=== PATIENT | female | born 1970 | race Caucasian/White ===

== ENCOUNTER 2024-12-05 09:36 | Outpatient (AMB) | payer OTHER, SELFPAY ==
--- NOTE | 2024-12-05 09:41 | MHC.PC.OV ---
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 She saw me at [facility] primary care. She would like a physical today. Records transfer pending. She has a history of rosacea treated with Metrogel as needed. She goes to Dermatology once a year for annual skin exams. No history of skin cancer. Subclinical hypothyroidism, left thyroid nodule-patient denies symptoms. She has never required treatment with medication, but her TSH has been monitored. Due for follow up u/s for nodule. She denies symptoms of neck compression. She requests a referral to genetic counseling/testing because her sister was recently diagnosed with myotonic muscular dystrophy, and her sister's son also carries this diagnosis. Last mammogram: October 2023 and she had a follow up u/s April 2024 due to a ?fluid-filled sac? in the left breast. Patient was told the finding was benign in to have her mammogram repeated in October 2024. Order fax[facility]. Last colonoscopy: normal and repeat in 10 years recommended, done 1-2 years ago Last OBGYN visit: Dr. Benitez. Summer 2023. She goes to Dermatology annually for skin exams. Received influenza vaccine and covid vaccine in Fall. We discussed Shingrix and Prevnar-20. She declined pneumonia vaccine today, but she will think about this and get it at the pharmacy or call the office if she decides to proceed. ROS: Constitutional: No unexplained weight loss, fever, chills, fatigue or night sweats. Eyes: No vision changes, blurry vision, double vision, eye pain, eye redness, eye discharge. ENT: No hearing loss, sneezing, congestion, runny nose or sore throat. Respiratory: No shortness of breath, cough or sputum production. Cardiovascular: No chest pain, chest pressure or chest discomfort. No palpitations or pedal edema. Gastrointestinal: No anorexia, nausea, vomiting or diarrhea. No abdominal pain or blood in stool. Genitourinary: No dysuria, hematuria, urinary frequency. Neurologic: No headache, dizziness, syncope, unilateral weakness, ataxia, numbness or tingling in the extremities. Musculoskeletal: No muscle pain, back pain, joint pain or swelling. Hematologic/Lymphatics: No bleeding or bruising. No painful lymph nodes. Skin: No rash or itching. Endocrine: No cold or heat intolerance. No polyuria or polydipsia. No dysphagia. Psychiatric: No depression or anxiety. No SI/HI. Physical exam: Constitutional: Alert, in no distress. Head: Normocephalic. Eyes: Pupils are equal, round and reactive to light. Extraocular muscles intact. Ear, Nose and Throat: Canals clear. TMs normal. Normal nasal mucosa. No nasal discharge. No oral lesions. Neck: Supple, Full range of motion. No lymphadenopathy. Palpable approx 1 cm left thyroid mass, nontender. Respiratory: Clear to auscultation. Cardiovascular: S1 S2 regular. No murmurs. No carotid bruits. Gastrointestinal: Abdomen soft, non-tender, non-distended. Normal bowel sounds. No palpable masses. Neurologic: No focal neurological deficits. Symmetric patellar reflexes. Moves all extremities spontaneously. Sensation intact bilaterally. Skin: No rashes. Musculoskeletal: No gross deformities. Normal range of motion. Extremities: Warm and well perfused. No clubbing, cyanosis or edema. 3+ peripheral pulses bilaterally. Psychiatric: Normal mood and affect [facility] Medical History (Updated 12/05/24 @ 10:15 by SHAINA Abraham) Thyroid nodule Rosacea Family history of muscular dystrophy Subclinical hypothyroidism Routine physical examination Surgical History (Updated 12/05/24 @ 09:21 by Brandy Rodarte CMA) H/O section Family History (Updated 12/05/24 @ 09:46 by Brandy Rodarte CMA) Mother Renal cancer Father Cardiovascular disease Maternal Grandmother Diabetes mellitus Sister Muscular dystrophy Social History Housing: House Patient Tobacco Use Status: Never used Tobacco e-Cigarette/Vaping Use: Never Used Second Hand Smoke Exposure: No service: No Current occupational status: employed 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 1. Little interest or pleasure in doing things: not at all 2. Feeling down, depressed, or hopeless: not at all 3. Trouble falling or staying asleep, or sleeping too much: not at all 4. Feeling tired or having little energy: not at all 5. Poor appetite or overeating: not at all 6. Feeling bad about yourself - or that you are a failure or have let yourself or your family down: not at all 7. Trouble concentrating on things, such as reading the newspaper or watching television: not at all 8. Moving or speaking so slowly that other people could have noticed. Or the opposite - being so fidgety or restless that you have been moving around a lot more than usual: not at all 9. Thoughts that you would be better off or of hurting yourself in some way: not at all Total score: 0 Depression Screening Interpretation: Negative Depression Screening Done: Yes 04805 - PHQ-9 Billing: Yes Source: Developed by Drs. Manas Boogie, Carlyn Martinez, Bill Arevalo and colleagues, with an educational freedom from [employer]. Thrive Questionnaire Date Thrive assessed: 12/05/24 I am a: Patient What is your living situation today?: I have a steady place to live Within the past 12 months, did the food you bought not last and you didn't have the money to get more?: Never true Within the past 12 months, did you worry whether your food would run out before you got money to buy more?: Never true Do you have trouble paying for medicines?: No Do you have trouble getting transportation to medical appointments?: No Do you have trouble paying your heating and electricity bill?: No Do you have trouble taking care of your child, family member or friend?: No Do you have trouble with day-to-day activities such as bathing, preparing meals, shopping, managing finances, etc.?: No Are you currently unemployed and looking for a job?: No Are you interested in more education?: No Please select the resources that you would like help with: None Currently or been in a relationship where the following occur: No concerns reported THRIVE Score: 0 AUDIT C Alcohol Use Questionnaire (AUDIT-C) 1. How often do you have a drink containing alcohol?: Never Total Score: 0 LITTLE-7 AMB Questionnaire LITTLE-7 Date LITTLE - 7 assessed: 12/05/24 Feeling nervous, anxious, or on edge: 0 = Not at all Not being able to stop or control worryin = Not at all Worrying too much about different things: 0 = Not at all Trouble relaxin = Not at all Being so restless that it is hard to sit still: 0 = Not at all Becoming easily annoyed or irritable: 0 = Not at all Feeling afraid as if something awful might happen: 0 = Not at all Total LITTLE-7 score (0-4 normal; 5-9 mild; 10-14 moderate; 15-21 severe): 0 Source: Developed by Drs. Manas Boogie, Carlyn Martinez, Bill Arevalo and colleagues, with an educational freedom from [employer]. LITTLE-7 Assessment Billing LITTLE-7 Assessment Tool: LITTLE-7 Assessment 56431 Physical exam (Primary Care) Vital Signs: Last Vital Signs Pulse 85 12/05/24 09:43 Resp 12 12/05/24 09:43 BP 102/70 12/05/24 09:43 Pulse Ox 97 12/05/24 09:43 Oxygen Delivery Method Room Air 12/05/24 09:43 BMI result Body Mass Index 32.4 Tobacco/Smoking Status: Tobacco use Status Tobacco use date assessed 12/05/24 12/05/24 09:48 Patient Tobacco Use Status Never used Tobacco 12/05/24 09:48 e-Cigarette/Vaping Use Never Used 12/05/24 09:48 PHQ-9: PHQ-9 Score PHQ-9: Total score 0 12/05/24 09:48 Depression Screening Interpretation: Negative Thrive Assessment: Date of Thrive Assessment Date Thrive assessed 12/05/24 12/05/24 09:48 Currently or been in a relationship where the following occur: No concerns reported Coding Level of Care Code Est Pt Prev Care 40-64y(85631) Diagnoses Routine physical examination Z00.00 Thyroid nodule E04.1 Subclinical hypothyroidism E03.8 Family history of muscular dystrophy Z82.0 Additional Codes LITTLE-7 Assessment Billing - LITTLE-7 Assessment Tool: LITTLE-7 Assessment 73312 ([id number]) PHQ-9 - 09677 - PHQ-9 Billing: Yes ([id number]) Assessment & Plan Assessment & Plan (1) Routine physical examination: Code(s): Z00.00 - Encounter for general adult medical examination without abnormal findings Category: Medical Plan: Patient is seen today for a routine physical. 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 - Screening for colon cancer - Blood pressure screening - Cholesterol screening - Osteoporosis prevention including calcium/vitamin D intake, weight bearing exercise & smoking cessation - Nutritional and exercise counseling - Counseling of injury prevention including fire prevention, smoke alarms and seat belt usage - Screening for depression - Prevention of and/or testing for infectious diseases - Education about skin cancer - Recommendations about immunizations - Recommendation of an eye exam - Screening for substance abuse (2) Thyroid nodule: Code(s): E04.1 - Nontoxic single thyroid nodule Category: Medical Plan: Thyroid ultrasound ordered for surveillance. (3) Subclinical hypothyroidism: Code(s): E03.8 - Other specified hypothyroidism Category: Medical Plan: Check TSH. (4) Family history of muscular dystrophy: Code(s): Z82.0 - Family history of epilepsy and other diseases of the nervous system Category: Medical Plan: Referred to [facility] genetic counseling. Plan Follow up in 1 year for annual physical exam. Orders: Orders Lipid Panel Today E03.8 - Other specified hypothyroidism, E78.5 - Hyperlipidemia, unspecified, Z00.00 - Encounter for general adult medical examination without abnormal findings, Z13.6 - Encounter for screening for cardiovascular disorders Comprehensive Met. Panel Today E03.8 - Other specified hypothyroidism, Z00.00 - Encounter for general adult medical examination without abnormal findings, Z13.6 - Encounter for screening for cardiovascular disorders Complete Blood Count no Diff Today E03.8 - Other specified hypothyroidism, Z00.00 - Encounter for general adult medical examination without abnormal findings, Z13.6 - Encounter for screening for cardiovascular disorders TSH reflex Free T4 Today E03.8 - Other specified hypothyroidism, Z00.00 - Encounter for general adult medical examination without abnormal findings, Z13.6 - Encounter for screening for cardiovascular disorders US thyroid Today E03.8 - Other specified hypothyroidism, E04.1 - Nontoxic single thyroid nodule MM screening mammo BI Today Z12.31 - Encounter for screening mammogram for malignant neoplasm of breast Referrals Genetics Referral E03.8 - Other specified hypothyroidism, E04.1 - Nontoxic single thyroid nodule, L71.9 - Rosacea, unspecified, Z00.00 - Encounter for general adult medical examination without abnormal findings, Z82.0 - Family history of epilepsy and other diseases of the nervous system Patient Instructions: We discussed Shingrix and Prevnar-20.
[2024-12-05 09:43] VITALS: BP 102/70; PULSE 85; RESP 12; O2SAT 97; BMI 32.4
--- OUTSIDE RECORDS SUMMARY | 2024-12-05 10:07 | XMS_ITS | Data Portability ---
Author Organization [place] - [facility],, ILDA MORA MD Address [address] [address] Assessment No assessment recorded. Plan of Treatment Reminders Order Date Submit Date Provider Last Modified By Organization Details Last Modified Time Details Appointments None recorded. Lab cytology report, thin prep, smear or scraping, cervical or vaginal 2023 024 KELIN [facility], [address] [place], [address], 4 16:13:12 hemoglobi n, gastroint estinal, stool 2023 024 [email or web address] 1 In-Office Order, Internal Use Only DO Not Attach Compendium DO Not Attach Compendium, Do Not Delete/merge, [id number] 4 09:17:07 pap test, thinprep, cervical 2022 023 [email or web address] [facility], [address] [place], [address], 3 07:33:11 fecal occult blood, stool 2022 023 KELIN In-Office Order, Internal Use Only DO Not Attach Compendium DO Not Attach Compendium, Do Not Delete/merge, [id number] 3 08:50:21 pap test, thinprep, cervical 2021 022 [email or web address] [facility], Cytopathology Service, [address] [place], [address], 2 07:31:39 fecal occult blood, stool 2021 022 [email or web address] 1 In-Office Order, Internal Use Only DO Not Attach Compendium DO Not Attach Compendium, Do Not Delete/merge, [id number] 2 08:28:02 pap test, thinprep, cervical 2020 021 [email or web address] [facility] Cytopathology Service, [address] [place] [address], [address], 1 08:12:09 fecal occult blood, stool 2020 021 [email or web address] 1 In-Office Order, Internal Use Only DO Not Attach Compendium DO Not Attach Compendium, Do Not Delete/merge, [id number] 1 09:37:46 pap test, thinprep, cervical 2019 020 [email or web address] [facility], Cytopathology Service, [address] [place] [address], [address], 0 07:11:12 fecal occult blood, stool 2019 020 [email or web address] In-Office Order, Internal Use Only DO Not Attach Compendium DO Not Attach Compendium, Do Not Delete/merge, [id number] 0 07:10:28 Referral None recorded. Procedures None recorded. Surgeries None recorded. Imaging MAMMO, screening , digital, bilateral - Breast Aspiratio n and/or Biopsy if needed 2023 024 [email or web address] [facility], [address], [address], [place], [address], 4 11:50:49 MAMMO, screening , digital, bilateral - Breast Aspiratio n and/or Biopsy if needed 2022 023 KELIN [facility], [address], [address], [place], [address], 4 08:10:13 MAMMO, screening , digital, bilateral 2021 022 [email or web address] [facility], [address], [address], [place], [address], 4 07:48:44 MAMMO, screening , digital, bilateral 2020 021 [email or web address] [address], [place], [address], 2 08:25:35 MAMMO, screening , digital, bilateral 2019 020 KELIN [facility] Orders, [address], [address], [place], [address], 1 09:22:42 Medication Orders None recorded. Patient TargetsNo targets recorded. Patient Instructions Encounter Date Encounter Id Patient Instructions Last Modified By Organization Details Last Modified Time 03/18/2020 [id number] She is here for annual exam, mesnes still regular, no vasomotor symptoms, she did get The Change Before The Change and read it. s/p vasectomy. Note from 2019: She is here for annual exam. has a vasectomy, menses are regular every 29 days, 3 days of moderate flow. She is concerned because her D Dimer was elevated twice, upon testing last month, by the PA at her PCP office. She never saw the MD. She notes she had a severe pain in the back of her calf, they did a d dimer, it was elevated, no other blood testing was done, and they had her go immediately to the emergency department! The ultrasound of her leg ws negative, they had her go home and follow up in 2 weeks, the repeat d dimer was also elevated but less so, nothing else was done. she is worried something could be wrong. Also her TSH has been elevated in the 4 to 6 range, over the past 3 years, with multiple tests, she notes, but has never been bad enough to start medicine. Lab tests scanned to chart today. She is of Pashto origin, states she does not have thalassemia, no one in her family has a blood clotting disorder. The D Dimer is above reference range. This might just be normal for her, however she was symptomatic with calf pain and it has gone down since then, will check CBC, antithyroid peroxidase AB, fibrinogen, and FDP. She is also offered to not do these labs today but go to see her PCP, not the PA, but she states she has a difficult time getting in to see her PCP, I only see the PA for problems, so we will draw these here today. She is advised she could also see a automobile brakes bonder if she wishes. She appears to be doing well. She did see the specialist last year nad they ran blood tests but no etiology for chronically elevated D-dimer was found. She is advised to get 1500 mg of calcium daily into her diet and supplements combined. We discussed the benefits of adequate vitamin D supplementation to at least 400 units daily, daily aerobic exercise of 30 minutes, and stress reduction. Monthly self breast exam was taught, and stressed, and is advised to call if she discovers any new mass in the breast. Seat belt use for herself and passengers advised. The significant health benefits of becoming and remainig fit, with an optimal BMI, were also discussed. We discussed the potential reduction in chronic discomfort, the diminished risks of hypertension, diabetes, and heart disease with the proper weight management, and improved mobility as she ages. Strategies to reach and maintain her target weight wer discussed in detail, all questions answered. carol Not available 03/18/2020 08:29:53 04/28/2021 [id number] learning about healthy weight carol Not available 04/28/2021 09:37:46 She is here for annual exam, is doing well, having moderate hot flashes and night sweats on and off. Menses are every 1 to 2 months, irregular. No intermenstrual bleeding. She feels the vasomotor symptoms are tolerable for now. note from 2019: She is here for annual exam, mesnes still regular, no vasomotor symptoms, she did get The Change Before The Change and read it. s/p vasectomy. ___ She appears to be doing well. The issues of menopause were discussed at length. The diagnosis of menopause is the absense of menses for a calendar year. It is rarely possible to still have a menses after a year, but if she has any vaginal bleeding she should consider it abnormal, postmenopausal bleeding and contact us for evaluation. We discussed the possible symptoms of hot flashes, night sweats, insomnia, iritability, short term memory issues, and the possibility of developing anxiety or panic attacks. We reviewed why this occurs, on a physiologic basis, as her estrogen levels diminish. There are reasonable ways to diminish the symptoms, including avoidance of caffeine and alcohol, cooler temperature rooms, and wearing open and loose weave absorbant clothing, or nothing at all, at night. We touched on the social and life issues that can arise at this time due to the hormonal instability. There are ways to manage the symptoms with herbal therapy. The use of black cohash, specifically Remifemin, is discussed, and she is advised that she must take it twice a day for a month prior to trying to asses whether there is any benefit, as it takes a month to begin to notice improvement. We discussed the increased risks of osteoporosis after menopause, and the issues of vaginal dryness, dyspareunia, increased urinary incontinence, etc. Kegels were taught and stressed. We also discussed the possible addition of hormone replacement therapy, and it was offered to her that we can discuss this further if she would like to do so. She is advised to get 1500 mg of calcium daily into her diet and supplements combined. There is a health benefit with adequate vitamin D supplementation to at least 400 units daily, daily aerobic exercise of 30 minutes, and stress reduction. Monthly self breast exam was taught, and stressed, and is advised to call if she discovers any new mass in the breast. Not available 04/28/2021 09:38:27 05/03/2022 [id number] learning about healthy weight Not available 05/03/2022 08:28:02 She is here for annual, last menses was 11/13, menses every 4 to 6 months, partner vasectomy. Moderate vasomotor symptoms, tolerable Note from 2020: She is here for annual exam, is doing well, having moderate hot flashes and night sweats on and off. Menses are every 1 to 2 months, irregular. No intermenstrual bleeding. She feels the vasomotor symptoms are tolerable for now. The issues of perimenopause were discussed at length. She is aware that her menses will become erratic, and she may miss menses more frequently. We discussed the possible symptoms of hot flashes, night sweats, insomnia, iritability, short term memory issues, and the possibility of developing anxiety or panic attacks. We reviewed why this occurs, on a physiologic basis, as her estrogen levels diminish. We discussed ways to diminish the symptoms, including avoidance of caffeine and alcohol, cooler temperature rooms, and wearing open and loose weave absorbant clothing, or nothing at all, at night. We touched on the social and life issues that can arise at this time due to the hormonal instability. We discussed ways to manage the symptoms with herbal therapy. The use of black cohash, specifically Remifemin, is discussed, and she is advised that she must take it twice a day for a month prior to trying to asses whether there is any benefit, as it takes a month to begin to notice improvement. She is advised to read The Change Before The Change , by Dr. Hawkins. All questions answered. She appears to be doing well. She is advised to get 1500 mg of calcium daily into her diet and supplements combined. There is a health benefit with adequate vitamin D supplementation to at least 400 units daily, daily aerobic exercise of 30 minutes, and stress reduction. Monthly self breast exam was taught, and stressed, and is advised to call if she discovers any new mass in the breast. Not available 05/03/2022 08:28:42 05/03/2023 [id number] learning about healthy weight Not available 05/03/2023 08:50:07 She is here for annual, doing well, last menses 11/14. She notes occasional mild urinary stress incontinence only when her bladder is full. she does not do Kegels. PArtner vasectomy. Note from 2021: She is here for annual, last menses was 11/13, menses every 4 to 6 months, partner vasectomy. Moderate vasomotor symptoms, tolerable She appears to be doing well. She is advised ot do Kegels, this is taught. 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 Still having menses on and off, likely vaginal estradiol may not be very helpful at this time. Monthly self breast exam was taught, and stressed, and is advised to call if she discovers any new mass in the breast. Not available 05/03/2023 08:49:46 05/17/2024 [id number] learning about healthy weight Not available 05/17/2024 09:17:07 She is here for annual, no menses since 11/14, vasomotor symptoms are mild and improving over time. Note from 2022: She is here for annual, doing well, last menses 11/14. She notes occasional mild urinary stress incontinence only when her bladder is full. she does not do Kegels. PArtner vasectomy. She appears to be doing well. . Monthly self breast exam was taught, and stressed, and is advised to call if she discovers any new mass in the breast. Not available 05/17/2024 09:17:23 Reason for Referral None Reported. Results Created Date Observation Date Name Description Value Unit Range Abnormal Flag Note LastModifiedBy Organization Detail LastModifiedTime 04/28/20 21 04/28/2021 fecal occul t blood , stool Occult Blood negati ve Not Available In-Office Order Internal Use Only DO Not Attach Compendium DO Not Attach Compendium, Do Not Delete/merge, [id number] 04/28/2021 08:07:11 03/18/20 20 03/18/2020 fecal occul t blood , stool Occult Blood negati ve Not Available In-Office Order Internal Use Only DO Not Attach Compendium DO Not Attach Compendium, Do Not Delete/merge, [id number] 03/18/2020 08:02:26 03/18/20 20 03/18/2020 pap test, thinp rep, cervi wei [id number] ThinP rep Pap, Image d: NEGAT PATRICIA FOR SQUAM OUS INTRA EPITH ELIAL LESIO N AND MALIG AAKASH . React patricia cellu lar cedeño es. Emani Crain , CT( CP) (Case Scree dar 03 23 2020) Zahraa Hopper M.D. , Patho logis t (Case elect lebron nunez harriet d 03 24 2020) ADEQU ACY: Satis facto ry Endoc ervic al/tr ansfo rmati on zone compo nent absen t. SOURC E: ThinP rep Pap HPV IF ASCUS , Cervi wei, Image d CLINI WEI INFOR MATIO N: HPV If Diagn osis of ASCUS . LPS , Z12.4 , Z01.4 19 Not Available [facility], Cytopathology Service [address] [place], [address], 03/25/2020 14:33:14 04/28/20 21 04/28/2021 PAP1C ASE [email or web address] ThinP rep Pap, Image d: NEGAT PATRICIA FOR SQUAM OUS INTRA EPITH ELIAL LESIO N AND MALHOLLY FINN . Ladan ambrocio , CT( CP) (Case elect lebron nunez harriet d 04 30 2021) ADEQU ACY: Satis facto ry Endoc ervic al/tr ansfo rmati on zone compo nent absen t. SOURC E: ThinP rep Pap HPV IF ASCUS , Cervi wei, Image d CLINI WEI INFOR MATIO N: HPV If Diagn osis of ASCUS . LPS NEG [Z12. 4, Z01.4 19] Not Available [facility], Cytopathology Service [address] [place], [address], 04/30/2021 11:55:56 05/03/20 22 05/03/2022 PAP1C ASE [id number] ThinP rep Pap, Image d: NEGAT PATRICIA FOR SQUAM OUS INTRA EPITH ELIAL LESIO N AND OLAF FINN . Bri Cedeño il , CT( CP) (Case elect lebron nunez harriet d 05 07 2022) ADEQU ACY: Satis facto ry Endoc ervic al/tr ansfo rmati on zone compo nent absen t. SOURC E: ThinP rep Pap HPV IF Ascus : Refle x 16 and 18, Cervi wei, Image d CLINI WEI INFOR MATIO N: HPV If Diagn osis of ASCUS . LPS 1 neg, [Z01. 419] Not Available [facility], Cytopathology Service [address] [place], [address], 05/09/2022 12:42:03 05/03/20 22 05/03/2022 fecal occul t blood , stool Occult Blood negati ve Not Available In-Office Order Internal Use Only DO Not Attach Compendium DO Not Attach Compendium, Do Not Delete/merge, [id number] 05/03/2022 08:27:54 05/03/20 23 05/03/2023 [facility] [place] CYTOL OGY results Raquel nathan Name: IRAJ CHEW ESRODRIGO nt : 1969 (Age: 53) Lab Acces jackeline #: [id number] Colle ction Date: 2022 Acces jackeline Date: 2022 Sign Out Date: 2022 Tissu e Sourc e: 1: THINP REP 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 Satis facto ry for evalu ation . Endoc ervic al/tr ansfo rmati on zone ABSEN T. Clini wei Histo ry: Date of Last Menst rual Perio d: not avail able Menst rual Histo ry: not avail able Contr acept patricia Histo ry: not avail able Ancil callum Testi ng: HPV (ASCU S) Case image d by the ThinP rep Imagi ng Systadamaris m with marcus navarror amelia arechiga or fazal gale Perfo rmed at [facility] ate Refer ence [facility] Cytol ogy, [address] [place] Clini wei Histo ry (othe r): Z01.4 19 LPS 05-03 NEGAT PATRICIA ROUTI NE ANISHE N Phone #: [phone], On-Ca ll Patho logis t: [id number] Not Available [facility] [address], [place], [place], [address], 05/05/2023 12:34:33 05/03/20 23 05/03/2023 fecal occul t blood , stool Occult Blood negati ve Not Available In-Office Order Internal Use Only DO Not Attach Compendium DO Not Attach Compendium, Do Not Delete/merge, [id number] 05/03/2023 08:19:02 05/17/20 24 05/21/2024 IGP, RFX APTIM A HPV ASCU diagnosis: Jerome mcneill NEGAT PATRICIA FOR INTRA EPITH ELIAL LESCORINNE N OR OLAF FINN . Not Available [facility] ([facility]) [address] [facility], [place], [address], 05/21/2024 16:13:12 05/17/20 24 05/21/2024 IGP, RFX APTIM A HPV ASCU specimen adequacy: Jerome mcneill Satis facto wilian for evalu ation . No endoc ervic al compo nent is ident ified . Not Available [facility] ([facility]) [address] [facility], [place], [address], 05/21/2024 16:13:12 05/17/20 24 05/21/2024 IGP, RFX APTIM A HPV ASCU clinician provided ICD10: Jerome mcneill Z01.4 19 Not Available [facility] ([facility]) [address] [facility], [place], [address], 05/21/2024 16:13:12 05/17/20 24 05/21/2024 IGP, RFX APTIM A HPV ASCU performed by: Sandra Nguyen (ASCP ) Not Available [facility] ([facility]) [address] [facility], [place], [address], 05/21/2024 16:13:12 05/17/20 24 05/21/2024 IGP, RFX APTIM A HPV ASCU . . Not Available [facility] ([facility]) [address] [facility], [place], [address], 05/21/2024 16:13:12 05/17/20 24 05/21/2024 IGP, RFX APTIM A HPV ASCU note: Commen t The Pap smear is a scree alba test desig dar to aid in the detec tion of hoda ligna nt and malig nant condi tions of the uteri ne cervi x. It is not a diagn ostic proce dure and shoul d not be used as the sole means of detec ting cervi wei cance r. Both false -posi tive and false -nega tive repor ts do occur . Not Available [facility] ([facility]) [address] [facility], [place], [address], 05/21/2024 16:13:12 05/17/20 24 05/21/2024 IGP, RFX APTIM A HPV ASCU test methodology: Commen t This liqui d based ThinP rep(R ) pap test was scree dar with the use of an image guide trevor systadamaris m. Not Available [facility] ([facility]) [address] [facility], [place], [address], 05/21/2024 16:13:12 05/17/20 24 05/21/2024 IGP, RFX APTIM A HPV ASCU . Commen t The HPV DNA refle x crite [place]akot[place] were not met with this speci men resul t there fore, no HPV testi ng was perfo rmed. Not Available [facility] ([facility]) [address] [facility], [place], [address], 05/21/2024 16:13:12 05/17/20 24 05/17/2024 hemog lobin , gastr ointe yanni l, stool Occult Blood negati ve Not Available In-Office Order Internal Use Only DO Not Attach Compendium DO Not Attach Compendium, Do Not Delete/merge, [id number] 05/17/2024 08:08:23 12/26/19 21 12/24/2020 MAMMO , scree alba, digit al, bilat eral No observ ation record ed. [facility] [address], [place], [address], 12/25/2020 09:27:05 10/25/19 24 10/25/2023 MAMMO , scree alba, digit al, bilat eral No observ ation record ed. [email or web address] [facility] [address], [place], [address], 10/30/2023 09:00:35 11/02/19 24 11/02/2023 ramya LANGSTON No observ ation record ed. [facility] [address] [place], [address], 11/02/2023 16:42:42 05/02/20 24 05/02/2024 ramya LANGSTON No observ ation record ed. [facility] [address] [place], [address], 05/02/2024 08:58:23 Result Notes None recorded. 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, 4 11:01:07 [facility] 47496040 Active 2017 Ilda Mora MD [address] [facility],[address], [place], [address], [place] [facility], 8 13:38:47 Menorrhagia 166032964 Active 2017 Ilda Mora MD [address], [place], [address], [place] - [facility], 8 13:46:41 Adela 009061342 Active 2018 [place] S[place] in [facility], 9 14:06:15 Blood in urine 46369533 Active Ilda Mora MD [address], [place], [address], [place] [facility], 4 15:23:58 Problem Notes None recorded. Procedures Surgical History Date Name Laterality Status Provider Name and Address Organization Details Recorded Time 4 Most Recent Mammogram completed Marietta Liu in [facility], 05/09/2024 11:14:22 8 Caesarean Section completed Corrine Liu in [facility], 01/01/2013 14:52:52 8 Caesarean Section completed Corrine Liu in [facility], 01/01/2013 14:52:52 Imaging Results Imaging Date Name Status [facility] Details LastModified Time 12/24/2020 MAMMO, screening, digital, bilateral completed [facility] [address], [place], [address], 12/25/2020 09:27:05 10/25/2023 MAMMO, screening, digital, bilateral completed [email or web address] [facility] [address], [place], [address], 10/30/2023 09:00:35 11/02/2023 US, breast completed [facility] [address] [place], [address], 11/02/2023 16:42:42 05/02/2024 US, breast completed [facility] [address], [place], [address], 05/02/2024 08:58:23 Procedure Notes None recorded. Medical Equipment None Reported. Allergies No known drug allergies Medications Name Sig Start Date Stop Date Status Note LastModified by Organization Details LastModified Time cyclobenzap rine 10 mg tablet active Not Available Not Available Not Available amoxicillin 500 mg capsule TAKE 1 CAPSULE BY MOUTH TWICE A DAY FOR 10 DAYS 05/03 completed Not Available Not Available Not Available ibuprofen 800 mg tablet active Not Available Not Available Not Available meloxicam 15 mg tablet TAKE 1 TABLET BY MOUTH EVERY DAY NEEDED 05/03 completed Not Available Not Available Not Available prednisone 20 mg tablet active Not Available Not Available Not Available sulfamethox azole 800 mg-trimetho prim 160 mg tablet active Not Available Not Available Not Available cephalexin 500 mg capsule active Not Available Not Available Not Available erythromyci n 5 mg/gram (0.5 %) eye ointment LOCATION: BOTH EYES. APPLY 1/4 INCH TO AFFECTED EYE EACH NIGHT. 90 DAYS SUPPLY 05/03 completed Not Available Not Available Not Available metronidazo le 0.75 % topical cream 05/03 completed Not Available Not Available Not Available azelaic acid 15 % topical gel 04/28 completed Not Available Not Available Not Available GaviLyte-G 236 gram-22.74 gram-6.74 gram-5.86 gram oral solution TAKE DIRECTED BY DR. MEADE 05/03 completed Not Available Not Available Not Available Vitals Date Recorded Body height Body mass index (BMI) Body weight Heart rate Systolic blood pressure Diastolic blood pressure Provider Name and Address Organization Details Last Updated DateTime 0 160.02 cm 32 kg/m2 20976.0 6 g 83 /min 119 mm[Hg] 65 mm[Hg] Marietta Theodore [place] [facility], 0 07:57:28 Date Recorded Body weight Body mass index (BMI) Body height Heart rate Systolic blood pressure Diastolic blood pressure Provider Name and Address Organization Details Last Updated DateTime 1 12637.6 1 g 30.5 kg/m2 160.02 cm 75 /min 107 mm[Hg] 60 mm[Hg] Marietta Liu in [facility], 1 08:15:00 Date Recorded Body height Body mass index (BMI) Body weight Body temperature Heart rate Systolic blood pressure Diastolic blood pressure Provider Name and Address Organization Details Last Updated DateTime 2 160.02 cm 31.9 kg/m2 17433.6 3 g 97.3 [degF] 77 /min 111 mm[Hg] 54 mm[Hg] Marietta Liu in [facility], 2 08:12:21 Date Recorded Body height Body mass index (BMI) Body weight Heart rate Systolic blood pressure Diastolic blood pressure Provider Name and Address Organization Details Last Updated DateTime 3 160.02 cm 31.9 kg/m2 77872.6 3 g 83 /min 105 mm[Hg] 57 mm[Hg] Rachael Liu in [facility], 3 08:22:01 Date Recorded Body temperature Heart rate Body weight Body mass index (BMI) Body height Systolic blood pressure Diastolic blood pressure Provider Name and Address Organization Details Last Updated DateTime 4 98.1 [degF] 72 /min 02890.3 1 g 32.8 kg/m2 160.02 cm 123 mm[Hg] 49 mm[Hg] Marietta Liu in [facility], 4 08:08:28 Social History Question Answer Notes LastModified by Organization Details LastModified Time Tobacco Smoking Status Never Smoker Not Available [facility] 08/25/2020 03:19:39 What Is Your Level Of Alcohol Consumption? None [id number] Information not available 08/25/2020 What Is Your Level Of Caffeine Consumption? None [id number] Information not available 08/25/2020 In The 14 Days Before Symptom Onset, Have You Had Close Contact With A Laboratory-confi rmed COVID-19 While That Case Was Ill? No Information not available 05/03/2022 In The 14 Days Before Symptom Onset, Have You Had Close Contact With A Person Who Is Under Investigation For COVID-19 While That Person Was Ill? No Information not available 05/03/2022 Have You Been To An Area Known To Be High Risk For COVID-19? No Information not available 05/03/2022 Are You Currently Employed? Yes Information not available 05/03/2023 What Type Of Diet Are You Following? REGULAR [id number] Information not available 08/25/2020 Which Illicit Or Recreational Drugs Have You Used? None [id number] Information not available 08/25/2020 Do You Reside In Or Have You Traveled To An Area Where Ebola Virus Transmission Is Active? No [id number] Information not available 08/25/2020 Do You Or Have You Ever Used E-cigarettes Or Vape? Never Used Electronic Cigarettes [id number] Information not available 08/25/2020 Education Post Graduate [email or web address] Information not available 01/01/2013 What Is The Highest Grade Or Level Of School You Have Completed Or The Highest Degree You Have Received? 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 0 Information not available 08/01/2016 Are There Any Guns Present In Your Home? No Information not available 05/03/2022 High Number Of Sexual Partners No Information not available 08/01/2016 To Which Gender Do You Self-identify? Female Information not available 08/01/2016 Marital Status [email or web address] Informatio n not available 01/01/2013 What Was The Date Of Your Most Recent Tobacco Screening? 05/03/2023 Information not available 05/03/2023 What Is Your Relationship Status? Information not available 05/03/2022 Are You Sexually Active? Yes [id number] Information not available 08/25/2020 Do You Or Have You Ever Used Smokeless Tobacco? Never Used Smokeless Tobacco [id number] Information not available 08/25/2020 How Much Tobacco Do You Smoke? No [id number] Information not available 08/25/2020 General Stress Level Low Information not available 04/28/2021 Do You Feel Stressed (tense, Restless, Nervous, Or Anxious, Or Unable To Sleep At Night)? [id number] Information not available 05/03/2022 Do You Use Any Illicit Or Recreational Drugs? No Information not available 05/03/2022 How Many Years Have You Smoked Tobacco? 0 [id number] Information not available 08/25/2020 Have You Recently (within The Last 12 Weeks, Or During A Current ) Traveled To Or Lived In A Zika-affected Area? No Information not available 08/01/2016 Do You Or Have You Ever Used Any Other Forms Of Tobacco Or Nicotine? No Information not available 05/03/2022 Sex: Female Functional Status Question Answer Note LastModified by Organization D etails LastModified Time What is your exercise level? Moderate Information not available 04/28/2021 Mental Status None recorded. Family History Relationship Description Onset Age of this Age Resolved Age Notes LastModified by Organization Details LastModified Time Mother Kidney disease 63 Renal cell Not available 04/30/2015 15:11:13 Maternal Grandmother Endometrial carcinoma previo usly record ed as Endome trial Cancer Not available 04/30/2015 15:11:13 Father Heart disease CABG x 3 (previ ously record ed as Heart Proble m) Not available 04/30/2015 15:11:13 Father Problem brain bleed. 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 Medical History Condition Response Anesthesia complications N High Blood Pressure N Candidate for MyRisk panel N Autoimmune Condition N Lung Disease N Depression N Defects or Inherited Disease N History of Ovarian Cancer N BRCA testing in past N Anxiety Disorder N Arthritis N Infertility N History of Cancer N Endometriosis N Thyroid Problems Y Kidney or Bladder Problems Y GI Problems N Anemia N History of Breast Cancer N JOHN exposure N Osteopenia N Psychiatric Illness N Diabetes N Headaches or Migraines N Asthma N Hepatitis N Heart Disease N Hypertension N Osteoporosis N Gynecological History Statement/Question Response Dysmenorrhea N Flow Heavy Frequency of Cycle (Q days) 28 Date of LMP 11/01/2022 N Menses Monthly Y Duration of Flow (days) 5 Most Recent Mammogram 10/25/2023 Current Control Method Partner Vas ectomy Age at Menarche 11 Age at First Child 28 Hormone Replacement Therapy N Obstetrics History GPAL:G 3 P 3 0 0 3 Type Value Full Term 3 Living 3 Total 3 Immunizations Vaccine Type Date Status Note Provider Nam e and Address Organization Details Recorded Time Influenza, split virus, trivalent, preservative 2 completed Ilda Mora MD [address] [facility],[address], [place], [address], [facility], 01/01/2013 15:05:14 Influenza, split virus, trivalent, preservative 3 completed [facility], 11/21/2013 13:59:55 Influenza, split virus, quadrivalent, preservative 7 completed Marietta Meczywor adithya [place] [facility], 11/20/2017 08:09:22 Influenza, split virus, quadrivalent, preservative 8 completed Marietta Meczywor null [place] [facility], 01/09/2019 08:07:58 Influenza, split virus, quadrivalent, preservative 9 completed Marietta Meczywor adithya [place] [facility], 03/18/2020 07:59:07 Influenza, split virus, quadrivalent, preservative 0 completed Marietta Meczywor null [place] [facility], 04/28/2021 08:16:52 COVID-19, mRNA, LNP-S, PF, 100 mcg/0.5mL dose or 50 mcg/0.25mL dose 1 completed Marietta Meczywor adithya [place] [facility], 04/28/2021 08:17:16 Influenza, split virus, quadrivalent, preservative 1 completed RIKKI Sibley in [facility], 05/03/2022 08:11:23 influenza, unspecified formulation 3 completed RIKKI Sibley in [facility], 05/17/2024 08:10:13 Past Encounters Encounter ID Performer Location Encounter Start Date Encounter Closed Date Diagnosis/Indication Diagnosis SNOMED-CT Code Diagnosis ICD10 Code Diagnosis Note [id number] MD ILDA Burks MD [address] [place] [address], [address] [address] 01/01/2013 14:34:51 01/02/2013 09:40:45 [id number] Corrine Glasgow ILDA MORA MD [address] [place] [address],[address] [address] 11/21/2013 13:44:44 11/21/2013 16:15:06 Blood in urine [id number] ILDA MORA MD [address] [place] [address],[address] [address] 04/07/2014 09:32:03 04/07/2014 11:23:39 Specialized medical examination [id number] Screening for malignant neoplasm of rectum 467927737 Screening mammography 27526156 Goiter [id number] ILDA MORA MD [address] [place] [address],[address] [address] 04/30/2015 14:44:48 04/30/2015 16:09:21 Specialized medical examination 21153546 Screening for malignant neoplasm of rectum 731846238 Screening mammography [id number] MD ILDA Burks MD [address] [place] [address],[facility] [address] [place] [address] 08/01/2016 13:13:38 08/01/2016 15:14:55 Specialized medical examination 60440197 Z01.419 Screening for malignant neoplasm of rectum 812917976 Z12.12 Screening mammography 24 718611 Z12.31 Cyst of ovary 79123233 N 83.29 [id number] MD ILDA Burks MD [address] [place] [address],[address] [address] 10/21/2016 08:58:56 10/21/2016 15:32:02 Cyst of ovary 98566417 N83.02 [id number] MD LIDA uBrks MD [address] [place] [address],[facility] [place] [address] 11/20/2017 07:59:38 11/20/2017 12:29:03 Specialized medical examination 36858988 Z01.419 Screening for malignant neoplasm of rectum 410389070 Z12.12 Screening mammography 24 237007 Z12.31 Menorrhagia 384266095 N9 2.0 Goiter 5026648 E04.9 [id number] MD ILDA Burks MD [address] [place] [address],[facility] [place] [address] 12/12/2017 13:19:58 12/12/2017 14:45:21 Hypothyroidism 99345779 E03.9 Goiter 8198232 E04.9 Menorrhagia 205081258 N9 2.0 [id number] MD ILDA Burks MD [address] [place] [address],[facility] [place] [address] 02/12/2018 09:07:50 02/12/2018 12:08:36 Breast lump [id number] N63.0 [id number] MD ILDA Burks MD [address] [place] [address] [place] [address] 01/09/2019 08:02:57 01/09/2019 10:25:11 Specialized medical examination 59590642 Z01.419 Screening for malignant neoplasm of rectum 555175968 Z12.12 Screening mammography 24 489365 Z12.31 D-dimer ab ove reference range 465408307 R79.1 [id number] MD ILDA Burks MD [address] [place] [address],[facility] [place] [address] 07/25/2019 13:45:09 07/25/2019 15:26:24 Irregular periods 32404690 N92.4 [id number] MD ILDA Burks MD [address] [place] [address] [place] [address] 03/18/2020 07:53:56 03/18/2020 09:47:44 Specialized medical examination 31897655 Z01.419 Screening for malignant neoplasm of rectum 943954806 Z12.12 Screening mammography 24 084569 Z12.31 [id number] MD ILDA Burks MD [address] [place] [address], [address] [facility] [place] [address] 04/28/2021 08:04:35 04/28/2021 10:37:11 Specialized medical examination 06264142 Z01.419 Screening for malignant neoplasm of rectum 525797559 Z12.12 Screening mammography 24 653481 Z12.31 [id number] MD ILDA Burks MD [address] [place] [address], [address] [facility] [place] [address] 05/03/2022 08:04:52 05/03/2022 10:32:14 Specialized medical examination 09484400 Z01.419 Screening for malignant neoplasm of rectum 374740651 Z12.12 Screening mammography 24 515120 Z12.31 [id number] MD ILDA Burks MD [address] [place] [address], [address] [place] [address] 05/03/2023 08:17:40 05/03/2023 11:39:17 Specialized medical examination 76624366 Z01.419 Screening for malignant neoplasm of rectum 903755113 Z12.12 Screening mammography 24 221490 Z12.31 [id number] MD ILDA Burks MD [address] [place] [address], [place] [place] [address] 05/17/2024 08:06:15 05/17/2024 11:50:49 Specialized medical examination 68964928 Z01.419 Screening for malignant neoplasm of rectum 912839437 Z12.12 Screening mammography 24 238527 Z12.31 Health Concerns Section Related Observation LastModified by Organization Detai ls LastModified Time None Recorded Concern Status LastModified by Organization Details LastModified Time None Recorded Advance Directives Directive None Recorded Payers Encounter Date Sequence Insurance Name Policy Number Policy Da Silva Covered Member ID Da Silva Member ID Guarantor Name 03/18/2020 1 [place] [id number] Gary Chase [id number] Rodrigo Chase 04/28/2021 1 [place] [id number] Gary Chase [id number] Rodrigo Chase 05/03/2022 1 [employer] - OPEN ACCESS PLUS [id number] Gary Chase [id number] Rodrigo Chase 05/03/2023 1 [employer] - OPEN ACCESS PLUS [id number] Gary Chase [id number] Rodrigo Chase 05/17/2024 1 [employer] - OPEN ACCESS PLUS [id number] Gary Chase [id number] Rodrigo Chase Notes Date Note Type Note Provider Name and Address Organization Details Recorded Time 03/18/2020 text/html She is here for annual exam, mesnes still regular, no vasomotor symptoms, she did get [employer] and read it. s/p vasectomy. Note from 2019: She is here for annual exam. has a vasectomy, menses are regular every 29 days, 3 days of moderate flow. She is concerned because her D Dimer was elevated twice, upon testing last month, by the PA at her PCP office. She never saw the MD. She notes she had a severe pain in the back of her calf, they did a d dimer, it was elevated, no other blood testing was done, and they had her go immediately to the emergency department! The ultrasound of her leg ws negative, they had her go home and follow up in 2 weeks, the repeat d dimer was also elevated but less so, nothing else was done. she is worried something could be wrong. Also her TSH has been elevated in the 4 to 6 range, over the past 3 years, with multiple tests, she notes, but has never been bad enough to start medicine. Lab tests scanned to chart today. She is of Pashto origin, states she does not have thalassemia, no one in her family has a blood clotting disorder. The D Dimer is above reference range. This might just be normal for her, however she was symptomatic with calf pain and it has gone down since then, will check CBC, antithyroid peroxidase AB, fibrinogen, and FDP. She is also offered to not do these labs today but go to see her PCP, not the PA, but she states she has a difficult time getting in to see her PCP, I only see the PA for problems, so we will draw these here today. She is advised she could also see a automobile brakes bonder if she wishes. Ilda Mora MD [address] [facility],[address], [place], [address], [employer] [facility], 03/18/2020 08:30:29 04/28/2021 text/html She is here for annual exam, is doing well, having moderate hot flashes and night sweats on and off. Menses are every 1 to 2 months, irregular. No intermenstrual bleeding. She feels the vasomotor symptoms are tolerable for now. note from 2019: She is here for annual exam, mesnes still regular, no vasomotor symptoms, she did get The [employer] Before The Change and read it. s/p vasectomy. Ilda Mora MD [address] [facility],[address], [place], [address], [employer] [facility], 04/28/2021 09:38:48 05/03/2022 text/html She is here for annual, last menses was 11/13, menses every 4 to 6 months, partner vasectomy. Moderate vasomotor symptoms, tolerable _ Note from 2020: She is here for annual exam, is doing well, having moderate hot flashes and night sweats on and off. Menses are every 1 to 2 months, irregular. No intermenstrual bleeding. She feels the vasomotor symptoms are tolerable for now. Ilda Mora MD [address], [place], [address], [employer] [facility], 05/03/2022 08:29:03 05/03/2023 text/html She is here for annual, doing well, last menses 11/14. She notes occasional mild urinary stress incontinence only when her bladder is full. she does not do Kegels. PArtner vasectomy. Note from 2022: She is here for annual, last menses was 11/13, menses every 4 to 6 months, partner vasectomy. Moderate vasomotor symptoms, tolerable Ilda Mora MD [address], [place], [address], [place] [facility], 05/03/2023 08:50:12 05/17/2024 text/html She is here for annual, no menses since 11/14, vasomotor symptoms are mild and improving over time. _ Note from 2022: She is here for annual, doing well, last menses 11/14. She notes occasional mild urinary stress incontinence only when her bladder is full. she does not do Kegels.PArtner vasectomy. Ilda Mora MD [address], [place], [address], [place] [facility], 05/17/2024 09:17:44 OBGyn Episode No OBEpisode recorded.
== END 2024-12-05 10:12 | disposition home or self-care (01) ==
PROVIDERS: PCP Physician Assistant Medical; Visit Provider Physician Assistant Medical
DX: Z00.00 Encounter for general adult medical examination without abnormal findings (principal); E04.1 Nontoxic single thyroid nodule; E03.8 Other specified hypothyroidism; Z82.0 Family history of epilepsy and other diseases of the nervous system

== ENCOUNTER → 2024-12-05 09:36 | Outpatient (BNVA) | payer OTHER, SELFPAY | PROVIDERS: PCP Physician Assistant Medical; Visit Provider Physician Assistant Medical | DX: Z00.00 Encounter for general adult medical examination without abnormal findings (principal); E04.1 Nontoxic single thyroid nodule; E03.8 Other specified hypothyroidism; L71.9 Rosacea, unspecified; Z82.0 Family history of epilepsy and other diseases of the nervous system | CPT/HCPCS: 96127 ==

== ENCOUNTER 2024-12-10 09:05 | Outpatient (REF) | payer OTHER, SELFPAY ==
--- OUTSIDE RECORDS SUMMARY | 2024-12-10 09:41 | XMS_ITS | Data Portability ---
Author Organization [place] - [facility],, ILDA MORA MD Address [address] [address] Assessment No assessment recorded. Plan of Treatment Reminders Order Date Submit Date Provider Last Modified By Organization Details Last Modified Time Details Appointments None recorded. Lab cytology report, thin prep, smear or scraping, cervical or vaginal 2023 024 KELIN [facility], [address] [place], [address], 4 16:13:12 hemoglobi n, gastroint estinal, stool 2023 024 [email or web address] 1 In-Office Order, Internal Use Only DO Not Attach Compendium DO Not Attach Compendium, Do Not Delete/merge, [id number] 09:17:07 pap test, thinprep, cervical 2022 023 [email or web address] [facility], [address] [place], [address], 3 07:33:11 fecal occult blood, stool 2022 023 KELIN In-Office Order, Internal Use Only DO Not Attach Compendium DO Not Attach Compendium, Do Not Delete/merge, [id number] 3 08:50:21 pap test, thinprep, cervical 2021 022 [email or web address] [facility], Cytopathology Service, [address] [place], [address], 2 07:31:39 fecal occult blood, stool 2021 022 [email or web address] 1 In-Office Order, Internal Use Only DO Not Attach Compendium DO Not Attach Compendium, Do Not Delete/merge, [id number] 2 08:28:02 pap test, thinprep, cervical 2020 021 [email or web address] [facility] Cyt[facility], [address] [place] [address], [address], 1 08:12:09 fecal occult blood, stool 2020 021 [email or web address] 1 In-Office Order, Internal Use Only DO Not Attach Compendium DO Not Attach Compendium, Do Not Delete/merge, [id number] 1 09:37:46 pap test, thinprep, cervical 2019 020 [email or web address] [facility] Cyt[facility], [address] [place] [address], [address], 0 07:11:12 fecal occult blood, stool 2019 020 [email or web address] In-Office Order, Internal Use Only DO Not Attach Compendium DO Not Attach Compendium, Do Not Delete/merge, [id number] 0 07:10:28 Referral None recorded. Procedures None recorded. Surgeries None recorded. Imaging MAMMO, screening , digital, bilateral - Breast Aspiratio n and/or Biopsy if needed 2023 024 [email or web address] [facility], [address], [address], [place], [address], 4 11:50:49 MAMMO, screening , digital, bilateral - Breast Aspiratio n and/or Biopsy if needed 2022 023 KELIN [facility], [address], [address], [place], [address], 4 08:10:13 MAMMO, screening , digital, bilateral 2021 022 [email or web address] [facility], [address], [address], [place], [address], 4 07:48:44 MAMMO, screening , digital, bilateral 2020 [email or web address] [address], [place], [address], 2 08:25:35 MAMMO, screening , digital, bilateral 2019 020 KELIN [facility], [address], [address], [place], [address], 1 09:22:42 Medication Orders None recorded. Patient TargetsNo targets recorded. Patient Instructions Encounter Date Encounter Id Patient Instructions Last Modified By Organization Details Last Modified Time 03/18/2020 [id number] She is here for annual exam, mesnes [...] scanned to chart today. She is of [place] origin, states she does not have thalassemia, [...] is advised she could also see a supervisor spinning if she wishes. She appears to be [...] answered. carol Not available 03/18/2020 08:29:53 04/28/2021 [id number] learning about healthy weight carol Not available [...] the breast. Not available 04/28/2021 09:38:27 05/03/2022 [id number] learning about healthy weight Not available 05/03/2022 [...] the breast. Not available 05/03/2022 08:28:42 05/03/2023 [id number] learning about healthy weight Not available 05/03/2023 [...] Kegels, this is taught. Offered referral to business services tech orology but she declines for now, will call if she changes her mind. Still having menses on and off, likely vaginal estradiol may not be very helpful at this time. Monthly self breast exam was taught, and stressed, and is advised to call if she discovers any new mass in the breast. Not available 05/03/2023 08:49:46 05/17/2024 [id number] learning about healthy weight Not available 05/17/2024 [...] DO Not Attach Compendium, Do Not Delete/merge, [id number] 04/28/2021 08:07:11 03/18/20 20 03/18/2020 fecal occul t blood , stool Occult Blood negati ve Not Available In-Office Order Internal Use Only DO Not Attach Compendium DO Not Attach Compendium, Do Not Delete/merge, [id number] 03/18/2020 08:02:26 03/18/20 20 03/18/2020 pap test, thinp rep, cervi wei [email or web address] ThinP rep Pap, Image d: NEGAT PATRICIA [...] , Z12.4 , Z01.4 19 Not Available [facility], Cytopathology Service [address] [place], [address], 03/25/2020 14:33:14 04/28/20 21 04/28/2021 PAP1C ASE [email or web address] ThinP rep Pap, Image d: NEGAT PATRICIA [...] NEG [Z12. 4, Z01.4 19] Not Available [facility], Cytopathology Service [address] [place], [address], 04/30/2021 11:55:56 05/03/20 22 05/03/2022 PAP1C ASE [id number] ThinP rep Pap, Image d: NEGAT PATRICIA [...] LPS 1 neg, [Z01. 419] Not Available [facility]opathology [facility] [address] [place], [address], 05/09/2022 12:42:03 05/03/20 22 05/03/2022 fecal occul t blood , stool Occult Blood negati ve Not Available In-Office Order Internal Use Only DO Not Attach Compendium DO Not Attach Compendium, Do Not Delete/merge, [id number] 05/03/2022 08:27:54 05/03/20 23 05/03/2023 [facility] results Raquel nathan Name: IRAJ CHEW ESRODRIGO nt : 1969 (Age: 53) Lab Acces jackeline #: [id number] Colle ction Date: 2022 Acces jackeline Date: 2022 Sign Out Date: 2022 Tissu e Sourc e: 1: 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, CERVI WEI: Final Diagn osis: [...] arechiga or fazal gale Perfo rmed at [facility] ate Refer ence [facility] Cytol ogy, [address] [place] Clini wei Histo ry (othe r): Z01.4 19 LPS 05-03 NEGAT PATRICIA ROUTI NE ANISHE N Phone #: [phone], On-Ca ll Patho logis t: [id number] Not Available [facility] [address], [place], [place], [address], 05/05/2023 12:34:33 05/03/20 23 05/03/2023 fecal occul t blood , stool Occult Blood negati ve Not Available In-Office Order Internal Use Only DO Not Attach Compendium DO Not Attach Compendium, Do Not Delete/merge, [id number] 05/03/2023 08:19:02 05/17/20 24 05/21/2024 IGP, RFX APTIM A HPV ASCU diagnosis: Jerome mcneill NEGAT PATRICIA FOR INTRA EPITH ELIAL LESCORINNE N OR OLAF FINN . Not Available [facility] ([facility]) [address], [place], [place], [address], 05/21/2024 16:13:12 05/17/20 24 05/21/2024 IGP, RFX APTIM A HPV ASCU specimen adequacy: Jerome mcneill Satis facto wilian for evalu ation . No endoc ervic al compo nent is ident ified . Not Available [facility] ([facility]) [address], [place], [place], [address], 05/21/2024 16:13:12 05/17/20 24 05/21/2024 IGP, RFX APTIM A HPV ASCU clinician provided ICD10: Jerome mcneill Z01.4 19 Not Available [facility] ([facility]) [address], [place], [place], [address], 05/21/2024 16:13:12 05/17/20 24 05/21/2024 IGP, RFX APTIM A HPV ASCU performed by: Sandra gNuyen (ASCP ) Not Available [facility] ([facility]) [address], [place], [place], [address], 05/21/2024 16:13:12 05/17/20 24 05/21/2024 IGP, RFX APTIM A HPV ASCU . . Not Available [facility] ([facility]) [address], [place], [place], [address], 05/21/2024 16:13:12 05/17/20 24 05/21/2024 IGP, RFX [...] ts do occur . Not Available [facility] ([facility]) [address], [place], [place], [address], 05/21/2024 16:13:12 05/17/20 24 05/21/2024 IGP, RFX APTIM A HPV ASCU test methodology: Commen t This liqui d based ThinP rep(R ) pap test was scree dar with the use of an image guide trevor systadamaris m. Not Available [facility] ([facility]) [address], [place], [place], [address], 05/21/2024 16:13:12 05/17/20 24 05/21/2024 IGP, RFX APTIM A HPV ASCU . Commen t The HPV DNA refle x crite dakotah were not met with this speci men resul t there fore, no HPV testi ng was perfo rmed. Not Available [facility] ([facility]) [address], [place], [place], [address], 05/21/2024 16:13:12 05/17/20 24 05/17/2024 hemog lobin , gastr ointe yanni l, stool Occult Blood negati ve Not Available In-Office Order Internal Use Only DO Not Attach Compendium DO Not Attach Compendium, Do Not Delete/merge, [id number] 05/17/2024 08:08:23 12/26/19 21 12/24/2020 MAMMO , scree alba, digit al, bilat eral No observ ation record ed. [facility] [address], [place], [address], 12/25/2020 09:27:05 10/25/19 24 10/25/2023 MAMMO , scree alba, digit al, bilat eral No observ ation record ed. [email or web address] [facility] [address], [place], [address], 10/30/2023 09:00:35 11/02/19 24 11/02/2023 ramya LANGSTON No observ ation record ed. [facility] [address] [place], [address], 11/02/2023 16:42:42 05/02/20 24 05/02/2024 ramya LANGSTON No observ ation record ed. [facility] [address] [place], [address], 05/02/2024 08:58:23 Result Notes None recorded. Problems Name Problem SNOMED Code Status Onset Date Resolution Date Notes Provider Name and Address Organization Details Recorded Time Goiter 5317059 Active Ilda Mora MD [address], [place], [address], [place] - [facility], 4 11:01:07 [facility] 40503572 Active 2017 Ilda Mora MD [address], [place], [address], [place] [facility], 8 13:38:47 Menorrhagia 493657038 Active 2017 Ilda Mora MD [address], [place], [address], [place] - [facility], 8 13:46:41 Adela 359022107 Active 2018 [place] Sibley in [facility], 9 14:06:15 Blood in urine 84245224 Active Ilda Mora MD [address], [place], [address], [place] - [facility], 4 15:23:58 Problem Notes None recorded. Procedures Surgical History Date Name Laterality Status Provider Name and Address Organization Details Recorded Time 4 Most Recent Mammogram completed Marietta Liu in [facility], 05/09/2024 11:14:22 8 Caesarean Section completed Corrine Liu in [facility], 01/01/2013 14:52:52 8 Caesarean Section completed Corrine Liu in [facility], 01/01/2013 14:52:52 Imaging Results Imaging Date Name Status LastModified by [facility] Details LastModified Time 12/24/2020 MAMMO, screening, digital, bilateral completed [facility] [address], [place], [address], 12/25/2020 09:27:05 10/25/2023 MAMMO, screening, digital, bilateral completed [email or web address] [facility] [address], [place], [address], 10/30/2023 09:00:35 11/02/2023 [place], breast completed [facility] [address] [place], [address], 11/02/2023 16:42:42 05/02/2024 US, breast completed [facility] [address], [place], [address], 05/02/2024 08:58:23 Procedure Notes None recorded. Medical [...] Updated DateTime 0 160.02 cm 32 kg/m2 47641.0 6 g 83 /min 119 mm[Hg] 65 mm[Hg] Marietta Theodore [place] [facility], 0 07:57:28 Date Recorded Body weight Body mass index (BMI) Body height Heart rate Systolic blood pressure Diastolic blood pressure Provider Name and Address Organization Details Last Updated DateTime 1 13922.6 1 g 30.5 kg/m2 160.02 cm 75 /min 107 mm[Hg] 60 mm[Hg] Marietta Liu in [facility], 1 08:15:00 Date Recorded Body height Body mass index (BMI) Body weight Body temperature Heart rate Systolic blood pressure Diastolic blood pressure Provider Name and Address Organization Details Last Updated DateTime 2 160.02 cm 31.9 kg/m2 83911.6 3 g 97.3 [degF] 77 /min 111 mm[Hg] 54 mm[Hg] Marietta Liu in [facility], 2 08:12:21 Date Recorded Body height Body mass index (BMI) Body weight Heart rate Systolic blood pressure Diastolic blood pressure Provider Name and Address Organization Details Last Updated DateTime 3 160.02 cm 31.9 kg/m2 77773.6 3 g 83 /min 105 mm[Hg] 57 mm[Hg] Rachael Liu in [facility], 3 08:22:01 Date Recorded Body temperature Heart rate Body weight Body mass index (BMI) Body height Systolic blood pressure Diastolic blood pressure Provider Name and Address Organization Details Last Updated DateTime 4 98.1 [degF] 72 /min 76062.3 1 g 32.8 kg/m2 160.02 cm 123 mm[Hg] 49 mm[Hg] Marietta Liu in [facility], 4 08:08:28 Social History Question Answer Notes LastModified by Organization Details LastModified Time Tobacco Smoking Status Never Smoker Not Available [facility] 08/25/2020 03:19:39 What Is Your Level Of Alcohol Consumption? None [id number] Information not available 08/25/2020 What Is Your Level Of Caffeine Consumption? None [id number] Information not available 08/25/2020 In The 14 [...] Type Of Diet Are You Following? REGULAR [id number] Information not available 08/25/2020 Which Illicit Or Recreational Drugs Have You Used? None [id number] Information not available 08/25/2020 Do You Reside In Or Have You Traveled To An Area Where Ebola Virus Transmission Is Active? No [id number] Information not available 08/25/2020 Do You Or Have You Ever Used E-cigarettes Or Vape? Never Used Electronic Cigarettes [id number] Information not available 08/25/2020 Education Post Graduate [email or web address] Information not available 01/01/2013 What Is The Highest Grade Or Level Of School You Have Completed Or The Highest Degree You Have Received? 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 Yes [id number] Information not available 08/25/2020 Do You Or Have You Ever Used Smokeless Tobacco? Never Used Smokeless Tobacco [id number] Information not available 08/25/2020 How Much Tobacco Do You Smoke? No [id number] Information not available 08/25/2020 General Stress Level Low Information not available 04/28/2021 Do You Feel Stressed (tense, Restless, Nervous, Or Anxious, Or Unable To Sleep At Night)? SN71607-7 Information not available 05/03/2022 Do You Use Any Illicit Or Recreational Drugs? No Information not available 05/03/2022 How Many Years Have You Smoked Tobacco? 0 [id number] Information not available 08/25/2020 Have You Recently [...] for MyRisk panel N Autoimmune Condition N Kidney or Bladder Problems Y Thyroid Problems Y Depression N Lung Disease N GI Problems N Defects or Inherited Disease N Anemia N History of Ovarian Cancer N History of Breast Cancer N JOHN exposure N BRCA testing in past N Osteopenia N Psychiatric Illness N Anxiety Disorder N Diabetes N Arthritis N Headaches or Migraines N Infertility N Asthma N History of Cancer N Endometriosis N Hepatitis N Heart Disease N Hypertension [...] preservative 2 completed Ilda Mora MD [address], [place], [address], [place] - [facility], 01/01/2013 15:05:14 Influenza, split virus, trivalent, preservative 3 completed [place] Mcnulty [facility], 11/21/2013 13:59:55 Influenza, split virus, quadrivalent, preservative 7 completed Marietta Meczywor adithya [place] - [facility], 11/20/2017 08:09:22 Influenza, split virus, quadrivalent, preservative 8 completed Marietta Meczywor null [place] - [facility], 01/09/2019 08:07:58 Influenza, split virus, quadrivalent, preservative 9 completed Marietta Meczywor adithya [place] - [facility], 03/18/2020 07:59:07 Influenza, split virus, quadrivalent, preservative 0 completed Marietta Meczywor null [place] - [facility], 04/28/2021 08:16:52 COVID-19, mRNA, LNP-S, PF, 100 mcg/0.5mL dose or 50 mcg/0.25mL dose 1 completed Marietta Meczywor adithya [place] [facility], 04/28/2021 08:17:16 Influenza, split virus, quadrivalent, preservative 1 completed [place] Sibley in [facility], 05/03/2022 08:11:23 influenza, unspecified formulation 3 completed [place] Sibley in [facility], 05/17/2024 08:10:13 Past Encounters Encounter ID Performer Location Encounter Start Date Encounter Closed Date Diagnosis/Indication Diagnosis SNOMED-CT Code Diagnosis ICD10 Code Diagnosis Note [id number] MD ILDA Burks MD [address] [place] [address], [address] [address] 01/01/2013 14:34:51 01/02/2013 09:40:45 [id number] Corrine Glasgow ILDA MORA MD [address] [place] [address],[address] [address] 11/21/2013 13:44:44 11/21/2013 16:15:06 Blood in urine 18911396 [id number] ILDA MORA MD [address] [place] [address],[address] [address] 04/07/2014 09:32:03 04/07/2014 11:23:39 Specialized medical examination 45792394 Screening for malignant neoplasm of rectum 987080342 Screening mammography 57659916 Goiter 5173963 [id number] ILDA MORA MD [address] [place] [address],[address] [address] 04/30/2015 14:44:48 04/30/2015 16:09:21 Specialized medical examination 06971018 Screening for malignant neoplasm of rectum 409521063 Screening mammography 09029417 [id number] MD ILDA Burks MD [address] [place] [address] [address] [place] [address] 08/01/2016 13:13:38 08/01/2016 15:14:55 Specialized medical examination 20696512 Z01.419 Screening for malignant neoplasm of rectum 961095047 Z12.12 Screening mammography 24 814442 Z12.31 Cyst of ovary 05808207 N 83.29 [id number] MD ILDA Burks MD [address] [place] [address],[address] [address] 10/21/2016 08:58:56 10/21/2016 15:32:02 Cyst of ovary 22616113 N83.02 [id number] MD ILDA Burks MD [address] [place] [address],[facility] [address] 11/20/2017 07:59:38 11/20/2017 12:29:03 Specialized medical examination 08633415 Z01.419 Screening for malignant neoplasm of rectum 231175505 Z12.12 Screening mammography 24 425645 Z12.31 Menorrhagia 258078015 N9 2.0 Goiter 4376170 E04.9 [id number] MD ILDA Burks MD [address] [place] [address],[facility] [place] [address] 12/12/2017 13:19:58 12/12/2017 14:45:21 Hypothyroidism 13513122 E03.9 Goiter 1321513 E04.9 Menorrhagia 610783856 N9 2.0 [id number] MD ILDA Burks MD [address] [place] [address],[facility] [place] [address] 02/12/2018 09:07:50 02/12/2018 12:08:36 Breast lump 16359907 N63.0 [id number] MD ILDA Burks MD [address] [place] [address] [place] [address] 01/09/2019 08:02:57 01/09/2019 10:25:11 Specialized medical examination 53011904 Z01.419 Screening for malignant neoplasm of rectum 249658027 Z12.12 Screening mammography 24 503500 Z12.31 D-dimer ab ove reference range 670078624 R79.1 [id number] MD ILDA Burks MD [address] [place] [address],[facility] [place] [address] 07/25/2019 13:45:09 07/25/2019 15:26:24 Irregular periods 43676178 N92.4 [id number] MD ILDA Burks MD [address] [place] [address] [place] [address] 03/18/2020 07:53:56 03/18/2020 09:47:44 Specialized medical examination 85273512 Z01.419 Screening for malignant neoplasm of rectum 613387726 Z12.12 Screening mammography 24 640784 Z12.31 [id number] MD ILDA Burks MD [address] [place] [address], [address] [place] [address] 04/28/2021 08:04:35 04/28/2021 10:37:11 Specialized medical examination 64315002 Z01.419 Screening for malignant neoplasm of rectum 289376017 Z12.12 Screening mammography 24 788700 Z12.31 [id number] MD ILDA Burks MD [address] [place] [address], [address] [place] [address] 05/03/2022 08:04:52 05/03/2022 10:32:14 Specialized medical examination 24030141 Z01.419 Screening for malignant neoplasm of rectum 102739246 Z12.12 Screening mammography 24 620457 Z12.31 [id number] MD ILDA Burks MD [address] [place] [address], [address] [place] [address] 05/03/2023 08:17:40 05/03/2023 11:39:17 Specialized medical examination 69933121 Z01.419 Screening for malignant neoplasm of rectum 050666969 Z12.12 Screening mammography 24 624466 Z12.31 [id number] MD ILDA Burks MD [address] [place] [address], [place] [address] 05/17/2024 08:06:15 05/17/2024 11:50:49 Specialized medical examination 80436522 Z01.419 Screening for malignant neoplasm of rectum 311542327 Z12.12 Screening mammography 24 127329 Z12.31 Health Concerns Section Related Observation LastModified by Organization Detai ls LastModified Time None Recorded Concern Status LastModified by Organization Details LastModified Time None Recorded Advance Directives Directive None Recorded Payers Encounter Date Sequence Insurance Name Policy Number Policy Da Silva Covered Member ID Da Silva Member ID Guarantor Name 03/18/2020 1 [place] [id number] Gary Chase [id number] Rodrigo Chase 04/28/2021 1 [place] [id number] Gary Chase [id number] Rodrigo Chase 05/03/2022 1 [employer] - OPEN ACCESS PLUS [id number] Gary Chase [id number] Rodrigo Chase 05/03/2023 1 [employer] - OPEN ACCESS PLUS [id number] Gary Chase [id number] Rodrigo Chase 05/17/2024 1 [employer] - OPEN ACCESS PLUS [id number] Gary Chase [id number] Rodrigo Chase Notes Date Note Type [...] scanned to chart today. She is of [place] origin, states she does not have thalassemia, [...] is advised she could also see a supervisor spinning if she wishes. Ilda Mora MD [address] [facility] [address] [facility],[address], [place], [address], [place] - [facility], 03/18/2020 08:30:29 04/28/2021 text/html She is here [...] it. s/p vasectomy. Ilda Mora MD [address] [facility] [address], [place], [address], [place] - [facility], 04/28/2021 09:38:48 05/03/2022 text/html She is here [...] tolerable for now. Ilda Mora MD [address] [facility],[address], [place], [address], [place] - [facility], 05/03/2022 08:29:03 05/03/2023 text/html She is here for annual, doing well, last menses 11/14. She notes occasional mild urinary stress incontinence only when her bladder is full. she does not do Kegels. PArtner vasectomy. Note from 2022: She is here for annual, last menses was 11/13, menses every 4 to 6 months, partner vasectomy. Moderate vasomotor symptoms, tolerable Ilda Mora MD [address] [facility],[address], [place], [address], [place] - [facility], 05/03/2023 08:50:12 05/17/2024 text/html She is here for annual, no menses since 11/14, vasomotor symptoms are mild and improving over time. _ Note from 2022: She is here for annual, doing well, last menses 11/14. She notes occasional mild urinary stress incontinence only when her bladder is full. she does not do Kegels.PArtner vasectomy. Ilda Mora MD [address] [facility],[address], [place], [address], [place] - [facility], 05/17/2024 09:17:44 OBGyn Episode No OBEpisode recorded.
[2024-12-10 11:18] LABS: Hematocrit 42.4 % (37.0-47.0); Mean Platelet Volume 11.5 fL (9.4-12.3); Platelet Count 232 X10*3/uL (160-400); Red Blood Count 4.66 X10*6/uL (4.20-5.50); Red Cell Distribution Width 13.1 % (11.0-16.0); White Blood Count 5.2 X10*3/uL (4.8-10.8)
[2024-12-10 12:15] LABS: Alanine Aminotransferase 18 U/L (0-31); Alkaline Phosphatase 105 U/L (39-117); Anion Gap 10 (12-20); Aspartate Amino Transferase 21 U/L (5-31); Bilirubin Total 0.4 mg/dL (0.0-1.0); Blood Urea Nitrogen 12 mg/dL (9-16); Calcium 9.6 mg/dL (8.4-10.2); Carbon Dioxide 29 mmol/L (22-29); Chloride 108 mmol/L (96-108); Cholesterol 187 mg/dL (<200); Estimated Glomerular Filt Rate > 60; Glucose Random 82 mg/dL (60-115); HDL Cholesterol 52 mg/dL (>40); LDL Cholesterol Calculated 111 mg/dL (<100); Potassium 4.4 mmol/L (3.3-5.1); Sodium 143 mmol/L (135-145); TSH reflex Free T4 3.73 uIU/mL (0.32-4.0); Total Protein 7.8 g/dL (6.5-8.0); Triglycerides 123 mg/dL (<150)
== END 2024-12-10 09:06 | disposition home or self-care (01) ==
LOC: HO.WFDLDS 09:05
PROVIDERS: Visit Provider Physician Assistant Medical
DX: Z00.00 Encounter for general adult medical examination without abnormal findings (principal); Z13.6 Encounter for screening for cardiovascular disorders; E03.8 Other specified hypothyroidism; E78.5 Hyperlipidemia, unspecified
CPT/HCPCS: 36415; 80053; 80061; 84443; 85027

== ENCOUNTER 2025-01-10 12:56 | Outpatient (REF) | payer OTHER, SELFPAY ==
--- NOTE | ~2025-01-10 | US_ITS ---
EXAMINATION: US THYROID HISTORY: E03.8 - Other specified hypothyroidism TECHNIQUE: Real-time grayscale ultrasound imaging was performed and images were reviewed. COMPARISON: There are no prior studies for comparison. FINDINGS: SIZE: The right thyroid lobe measures 5.2 x 1.8 x 1.7 cm. The left thyroid lobe measures 5.2 x 2.0 x 1.9 cm. The isthmus measures 7 mm. FLOW: Flow to the gland is increased. ECHOGENICITY: The echotexture of the gland is heterogeneous. NODULES: Nodules are noted in the left thyroid lobe as described below: Nodule #: 1 Location: Left upper pole measuring 1.9 x 0.9 x 1.6 cm. Shape: Wider than tall (0 points) Margins: Smooth (0 points) Echotexture: Hyperechoic (1 point) Composition: Mostly solid (2 points) Calcifications: None (0 points) Total points: 3 TIRADS: TR3: Mildly suspicious. Nodule #: 2 Location: Interpolar region of the left thyroid lobe measuring 0.7 0.6 x 1.0 cm. Shape: Wider than tall (0 points) Margins: Smooth (0 points) Echotexture: Hyperechoic (1 point) Composition: Solid (2 points) Calcifications: None (0 points) Total points: 3 TIRADS: TR3: Mildly suspicious. US/US thyroid IMPRESSION: Left thyroid nodules as described above. Follow-up is recommended. ACR TI-RADS Guidelines TR1 (0 points): Benign, No follow-up or biopsy required TR2 (2 points): Not Suspicious, No biopsy or follow up indicated TR3 (3 points): Mildly Suspicious, FNA if >= 2.5 cm, Follow if >= 1.5 cm TR4 (4-6 points): Moderately Suspicious, FNA if >= 1.5 cm, Follow if >= 1.0 cm TR5 (>=7 points): Highly Suspicious, FNA if >= 1.0 cm, Follow if >= 0.5 cm Electronically signed by: Manas Smith MD 01/13/2025 08:51 AM EDT
--- OUTSIDE RECORDS SUMMARY | 2025-01-10 15:19 | XMS_ITS | Data Portability ---
Author Organization [place] - [facility] in [facility],, ILDA MORA MD Address [address] [address] Assessment No assessment recorded. Plan of Treatment Reminders Order Date Submit Date Provider Last Modified By Organization Details Last Modified Time Details Appointments None recorded. Lab cytology report, thin prep, smear or scraping, cervical or vaginal 2023 024 KELIN [facility] (Centralized Electronic Ordering - All Locations), Patient Can Go To The Location Of Their Choice, [id number] 4 16:13:12 hemoglobi n, gastroint estinal, stool 2023 024 [email or web address] 1 In-Office Order, Internal Use Only DO Not Attach Compendium DO Not Attach Compendium, Do Not Delete/merge, [id number] 4 09:17:07 pap test, thinprep, cervical 2022 023 [email or web address] [facility] (Centralized Electronic Ordering - All Locations), Patient Can Go To The Location Of Their Choice, [id number] 3 07:33:11 fecal occult blood, stool 2022 023 KELIN In-Office Order, Internal Use Only DO Not Attach Compendium DO Not Attach Compendium, Do Not Delete/merge, [id number] 3 08:50:21 pap test, thinprep, cervical 2021 022 [email or web address] [facility], Cytopathology Service, [address] [place] [address], [address], 2 07:31:39 fecal occult blood, stool 2021 022 [email or web address] 1 In-Office Order, Internal Use Only DO Not Attach Compendium DO Not Attach Compendium, Do Not Delete/merge, [id number] 2 08:28:02 pap test, thinprep, cervical 2020 021 [email or web address] [facility], Cytopathology Service, [address] [place] [address], [address], 1 08:12:09 fecal occult blood, stool 2020 021 [email or web address] 1 In-Office Order, Internal Use Only DO Not Attach Compendium DO Not Attach Compendium, Do Not Delete/merge, [id number] 1 09:37:46 pap test, thinprep, cervical 2019 020 [email or web address] [facility], Cytopathology Service, [address] [place], [address], 0 07:11:12 fecal occult blood, stool 2019 020 [email or web address] In-Office Order, Internal Use Only DO Not Attach Compendium DO Not Attach Compendium, Do Not Delete/merge, [id number] 0 07:10:28 Referral None recorded. Procedures None recorded. Surgeries None recorded. Imaging MAMMO, screening , digital, bilateral - Breast Aspiratio n and/or Biopsy if needed 2023 024 [email or web address] [facility] Imaging Orders, [address], [address], [place], [address], 4 11:50:49 MAMMO, screening , digital, bilateral - Breast Aspiratio n and/or Biopsy if needed 2022 023 KELIN [facility] Imaging Orders, [address], [address], [place], [address], 4 08:10:13 MAMMO, screening , digital, bilateral 2021 022 [email or web address] [facility] Imaging Orders, [address], [address], [place], [address], 4 07:48:44 MAMMO, screening , digital, bilateral 2020 021 [email or web address] [facility] (Mammography), [address], [place], [address], 2 08:25:35 MAMMO, screening , digital, bilateral 2019 020 KELIN [facility] Imaging Orders, [address], [address], [place], [address], 1 09:22:42 Medication Orders None recorded. Patient TargetsNo targets recorded. Patient Instructions Encounter Date Encounter Id Patient Instructions Last Modified By Organization Details Last Modified Time 03/18/2020 [id number] She is here for annual exam, mesnes [...] scanned to chart today. She is of [place] origin, states she does not have thalassemia, [...] is advised she could also see a network development coordinator if she wishes. She appears to be [...] wer discussed in detail, all questions answered. Not available 03/18/2020 08:29:53 04/28/2021 [id number] learning about healthy weight carol Not available [...] the breast. Not available 04/28/2021 09:38:27 05/03/2022 [id number] learning about healthy weight Not available 05/03/2022 [...] the breast. Not available 05/03/2022 08:28:42 05/03/2023 [id number] learning about healthy weight Not available 05/03/2023 [...] Kegels, this is taught. Offered referral to licensed psychiatric technician orology but she declines for now, will call if she changes her mind. Still having menses on and off, likely vaginal estradiol may not be very helpful at this time. Monthly self breast exam was taught, and stressed, and is advised to call if she discovers any new mass in the breast. Not available 05/03/2023 08:49:46 05/17/2024 [id number] learning about healthy weight Not available 05/17/2024 [...] DO Not Attach Compendium, Do Not Delete/merge, [id number] 04/28/2021 08:07:11 03/18/20 20 03/18/2020 fecal occul t blood , stool Occult Blood negati ve Not Available In-Office Order Internal Use Only DO Not Attach Compendium DO Not Attach Compendium, Do Not Delete/merge, [id number] 03/18/2020 08:02:26 03/18/20 20 03/18/2020 pap test, thinp rep, cervi wei [email or web address] ThinP rep Pap, Image d: NEGAT PATRICIA FOR SQUAM OUS INTRA EPITH ELIAL LESIO N AND MALIG AAKASH . React patricia cellu patricia cedeño es. Emani Crain , CT( CP) [...] , Z12.4 , Z01.4 19 Not Available [facility], Cytopathology Service [address] [place], [address], 03/25/2020 14:33:14 04/28/20 21 04/28/2021 PAP1C ASE [email or web address] ThinP rep Pap, Image d: NEGAT PATRICIA FOR SQUAM OUS INTRA EPITH ELIAL LESIO N AND MALIG AAKASH . Ladan ambrocio , CT( CP) (Case [...] NEG [Z12. 4, Z01.4 19] Not Available [facility], Cytopathology Service [address] [place], [address], 04/30/2021 11:55:56 05/03/20 22 05/03/2022 PAP1C ASE [email or web address] ThinP rep Pap, Image d: NEGAT PATRICIA FOR SQUAM OUS INTRA EPITH ELIAL LESIO N AND MALIG AAKASH . Bri Cedeño il , CT( CP) [...] LPS 1 neg, [Z01. 419] Not Available [facility], Cytopathology Service [address] [place], [address], 05/09/2022 12:42:03 05/03/20 22 05/03/2022 fecal occul t blood , stool Occult Blood negati ve Not Available In-Office Order Internal Use Only DO Not Attach Compendium DO Not Attach Compendium, Do Not Delete/merge, [id number] 05/03/2022 08:27:54 05/03/20 23 05/03/2023 [facility] CYTOL OGY results Raquel nt Name: IRAJ CHEW ESRODRIGO nt : 1969 (Age: 53) Lab Acces jackeline #: [id number] Colle ction Date: 2022 Acces jackeline Date: 2022 Sign Out Date: 2022 Tissu e Sourc e: 1: THINP REP BREAKER OILER PAP TEST, CERVI WEI: Final Diagn osis: NEGAT PATRICIA FOR INTRA EPITH MIRYAM Dillon OR OLAF FINN . Satis facto ry [...] d by the ThinP rep Imagi ng Syste m with marcus navarror amelia arechiga or fazal gale Perfmaureen rmed at [facility] ate Refer ence Labor atory depar tment of Cytol ogy, [address] [place] Clini wei Histo ry (othe r): Z01.4 19 LPS 05-03 NEGAT PATRICIA ROUTI NE ANISHE N Phone #: [phone], On-Ca ll Patho logis t: [id number] Not Available [facility] (Centralized Electronic Ordering - All Locations) Patient Can Go To The Location Of Their Choice, [id number] 05/05/2023 12:34:33 05/03/20 23 05/03/2023 fecal occul t blood , stool Occult Blood negati ve Not Available In-Office Order Internal Use Only DO Not Attach Compendium DO Not Attach Compendium, Do Not Delete/merge, [id number] 05/03/2023 08:19:02 05/17/20 24 05/21/2024 IGP, RFX APTIM A HPV ASCU diagnosis: Jerome CANTRELL PATRICIA FOR INTRA EPITH ELIAL ANIYA N OR OLAF FINN . Not Available [facility] ([facility]) [address] [facility], [place], [address], 05/21/2024 16:13:12 05/17/20 24 05/21/2024 IGP, RFX APTIM A HPV ASCU specimen adequacy: Jerome mcneill Satis facto ry for evalu ation . No endoc ervic al compo nent is ident ified . Not Available [facility] ([facility]) [address] [facility], [place], [address], 05/21/2024 16:13:12 05/17/20 24 05/21/2024 IGP, RFX APTIM A HPV ASCU clinician provided ICD10: Jerome mcneill Z01.4 19 Not Available [facility] ([facility]) [address] [place], [address], 05/21/2024 16:13:12 05/17/20 24 05/21/2024 IGP, RFX APTIM A HPV ASCU performed by: Jerome Carroll, Cytot dennis mcneill (ASCP ) Not Available [facility] ([facility]) [address] [facility], [place], [address], 05/21/2024 16:13:12 05/17/20 24 05/21/2024 IGP, RFX APTIM A HPV ASCU . . Not Available [facility] ([facility]) [address] [facility], [place], [address], 05/21/2024 16:13:12 05/17/20 24 05/21/2024 IGP, RFX [...] ts do occur . Not Available [facility] ([facility]) [address] [facility], [place], [address], 05/21/2024 16:13:12 05/17/20 24 05/21/2024 IGP, RFX APTIM A HPV ASCU test methodology: Commen t This liqui d based ThinP rep(R ) pap test was scree dar with the use of an image guide d syste m. Not Available [facility] ([facility]) [address] [facility], [place], [address], 05/21/2024 16:13:12 05/17/20 24 05/21/2024 IGP, RFX APTIM A HPV ASCU . Commen t The HPV DNA refle x crite dakotah were not met with this speci men resul t there fore, no HPV testi ng was perfo rmed. Not Available [facility] ([facility]) [address] [facility], [place], [address], 05/21/2024 16:13:12 05/17/20 24 05/17/2024 hemog lobin , gastr ointe yanni l, stool Occult Blood negati ve Not Available In-Office Order Internal Use Only DO Not Attach Compendium DO Not Attach Compendium, Do Not Delete/merge, [id number] 05/17/2024 08:08:23 12/26/19 21 12/24/2020 MAMMO , scree alba, digit al, bilat eral No observ ation record ed. [facility] Imaging Orders [address], [place], [address], 12/25/2020 09:27:05 10/25/19 24 10/25/2023 MAMMO , scree alba, digit al, bilat eral No observ ation record ed. [email or web address] [facility] Breast & [facility] [address], [place], [address], 10/30/2023 09:00:35 11/02/19 24 11/02/2023 ramya LANGSTON No observ ation record ed. [facility] Breast [facility] [address] [place], [address], 11/02/2023 16:42:42 05/02/20 24 05/02/2024 ramya LANGSTON No observ ation record ed. [facility] Breast & [facility] [address], [place], [address], 05/02/2024 08:58:23 Result Notes None recorded. Problems Name Problem SNOMED Code Status Onset Date Resolution Date Notes Provider Name and Address Organization Details Recorded Time Goiter 0583417 Active Ilda Mora MD [address], [place], [address], [place] - [facility] in [facility], 4 11:01:07 Hypothyroidism 99633095 Active 2017 Ilda Mora MD [address], [place], [address], [place] - [facility] in [facility], 8 13:38:47 Menorrhagia 507324627 Active 2017 Ilda Mora MD [address], [place], [address], [place] - [facility] in [facility], 8 13:46:41 Adela 165666900 Active 2018 Marietta haji [place] - [facility], 9 14:06:15 Blood in urine 72558136 Active Ilda Mora MD [address], [place], [address], [place] - [facility], 4 15:23:58 Problem Notes None recorded. Procedures Surgical History Date Name Laterality Status Provider Name and Address Organization Details Recorded Time Most Recent Mammogram completed Marietta Liu in [facility], 05/09/2024 11:14:22 8 Caesarean Section completed Corrine Liu in [facility], 01/01/2013 14:52:52 8 Caesarean Section completed Corrine Liu in [facility], 01/01/2013 14:52:52 Imaging Results Imaging Date Name Status LastModified by Organ [facility] Details LastModified Time 12/24/2020 MAMMO, screening, digital, bilateral completed [facility] Imaging Orders [address], [place], [address], 12/25/2020 09:27:05 10/25/2023 MAMMO, screening, digital, bilateral completed [email or web address] [facility] [address], [place], [address], 10/30/2023 09:00:35 11/02/2023 [place], breast completed [facility] [address], [place], [address], 11/02/2023 16:42:42 05/02/2024 US, breast completed [facility] [address], [place], [address], 05/02/2024 08:58:23 Procedure Notes None recorded. Medical [...] Updated DateTime 0 160.02 cm 32 kg/m2 72257.0 6 g 83 /min 119 mm[Hg] 65 mm[Hg] Marietta Theodore [place] - [facility], 0 07:57:28 Date Recorded Body weight Body mass index (BMI) Body height Heart rate Systolic blood pressure Diastolic blood pressure Provider Name and Address Organization Details Last Updated DateTime 1 58017.6 1 g 30.5 kg/m2 160.02 cm 75 /min 107 mm[Hg] 60 mm[Hg] Marietta Liu in [facility], 1 08:15:00 Date Recorded Body height Body mass index (BMI) Body weight Body temperature Heart rate Systolic blood pressure Diastolic blood pressure Provider Name and Address Organization Details Last Updated DateTime 2 160.02 cm 31.9 kg/m2 66261.6 3 g 97.3 [degF] 77 /min 111 mm[Hg] 54 mm[Hg] Marietta Liu in [facility], 2 08:12:21 Date Recorded Body height Body mass index (BMI) Body weight Heart rate Systolic blood pressure Diastolic blood pressure Provider Name and Address Organization Details Last Updated DateTime 3 160.02 cm 31.9 kg/m2 81616.6 3 g 83 /min 105 mm[Hg] 57 mm[Hg] Rachael Liu in [facility], 3 08:22:01 Date Recorded Body temperature Heart rate Body weight Body mass index (BMI) Body height Systolic blood pressure Diastolic blood pressure Provider Name and Address Organization Details Last Updated DateTime 4 98.1 [degF] 72 /min 06112.3 1 g 32.8 kg/m2 160.02 cm 123 mm[Hg] 49 mm[Hg] Marietta Liu in [facility], 4 08:08:28 Social History Question Answer Notes LastModified by Organization Details LastModified Time Tobacco Smoking Status Never Smoker Not Available [facility] 08/25/2020 03:19:39 What Is Your Level Of Alcohol Consumption? None [id number] Information not available 08/25/2020 What Is Your Level Of Caffeine Consumption? None [id number] Information not available 08/25/2020 In The 14 [...] Type Of Diet Are You Following? REGULAR [id number] Information not available 08/25/2020 Which Illicit Or Recreational Drugs Have You Used? None [id number] Information not available 08/25/2020 Do You Reside In Or Have You Traveled To An Area Where Ebola Virus Transmission Is Active? No [id number] Information not available 08/25/2020 Do You Or Have You Ever Used E-cigarettes Or Vape? Never Used Electronic Cigarettes [id number] Information not available 08/25/2020 Education Post Graduate [email or web address] Information not available 01/01/2013 What Is The Highest Grade Or Level Of School You Have Completed Or The Highest Degree You Have Received? 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 0 Information not available 08/01/2016 Are There Any Guns Present In Your Home? No Information not available 05/03/2022 High Number Of Sexual Partners No Information not available 08/01/2016 To Which Gender Do You Self-identify? Female Information not available 08/01/2016 Marital Status shaheen Informatio n not available 01/01/2013 What Was The Date Of Your Most Recent Tobacco Screening? 05/03/2023 Information not available 05/03/2023 What Is Your Relationship Status? Information not available 05/03/2022 Are You Sexually Active? Yes [id number] Information not available 08/25/2020 Do You Or Have You Ever Used Smokeless Tobacco? Never Used Smokeless Tobacco [id number] Information not available 08/25/2020 How Much Tobacco Do You Smoke? No [id number] Information not available 08/25/2020 General Stress Level Low Information not available 04/28/2021 Do You Feel Stressed (tense, Restless, Nervous, Or Anxious, Or Unable To Sleep At Night)? [id number] Information not available 05/03/2022 Do You Use Any Illicit Or Recreational Drugs? No Information not available 05/03/2022 How Many Years Have You Smoked Tobacco? 0 [id number] Information not available 08/25/2020 Have You Recently [...] for MyRisk panel N Autoimmune Condition N Depression N Lung Disease N Defects or Inherited Disease N History of Ovarian Cancer N BRCA testing in past N Anxiety Disorder N Arthritis N Infertility N History of Cancer N Endometriosis N Kidney or Bladder Problems Y Thyroid Problems Y GI Problems N Anemia N [...] trivalent, preservative 2 completed Ilda Mora MD [address] [place] [address],[address], [place], [address], [place] - [facility] in [facility] Care, 01/01/2013 15:05:14 Influenza, split virus, trivalent, preservative 3 completed [place] Mcnulty in [facility], 11/21/2013 13:59:55 Influenza, split virus, quadrivalent, preservative 7 completed Marietta Eduardowlisa haji [place] - Alexa in [facility] Care, 11/20/2017 08:09:22 Influenza, split virus, quadrivalent, preservative 8 completed Marietta Eduardowlisa haji [place] - [facility] in [facility], 01/09/2019 08:07:58 Influenza, split virus, quadrivalent, preservative 9 completed Marietta Meczywlisa haji [place] - Alexa in [facility], 03/18/2020 07:59:07 Influenza, split virus, quadrivalent, preservative 0 completed Marietta Meczywor adithya [place] - [facility] in [facility], 04/28/2021 08:16:52 COVID-19, mRNA, LNP-S, PF, 100 mcg/0.5mL dose or 50 mcg/0.25mL dose 1 completed Marietta Meczywor [place] haji in [facility] Care, 04/28/2021 08:17:16 Influenza, split virus, quadrivalent, preservative 1 completed Marietta Polancoywor nullRIKKI in [facility], 05/03/2022 08:11:23 influenza, unspecified formulation 3 completed Marietta Garsiaesteelisa [place] haji in [facility], 05/17/2024 08:10:13 Past Encounters Encounter ID Performer Location Encounter Start Date Encounter Closed Date Diagnosis/Indication Diagnosis SNOMED-CT Code Diagnosis ICD10 Code Diagnosis Note [id number] MD ILDA Burks MD [address] [place] [address],[place] [address] 01/01/2013 14:34:51 01/02/2013 09:40:45 [id number] Corrine Glasgow ILDA MORA MD [address] [place] [address],[place] [address] 11/21/2013 13:44:44 11/21/2013 16:15:06 Blood in urine 88541120 [id number] ILDA MORA MD [address] [place] [address],[place] [address] 04/07/2014 09:32:03 04/07/2014 11:23:39 Specialized medical examination 58410797 Screening for malignant neoplasm of rectum 199899981 Screening mammography 84510035 Goiter 9114346 [id number] ILDA MORA MD [address] [place] [address],[address] [place] [address] 04/30/2015 14:44:48 04/30/2015 16:09:21 Specialized medical examination 23565344 Screening for malignant neoplasm of rectum 534420854 Screening mammography 00468055 [id number] MD ILDA Burks MD [address] [place] [address],[address] [place] [address] 08/01/2016 13:13:38 08/01/2016 15:14:55 Specialized medical examination 59628938 Z01.419 Screening for malignant neoplasm of rectum 901109212 Z12.12 Screening mammography 24 825122 Z12.31 Cyst of ovary 23902466 N 83.29 [id number] MD ILDA Burks MD [address] [place] [address],[address] [place] [address] 10/21/2016 08:58:56 10/21/2016 15:32:02 Cyst of ovary 49703464 N83.02 [id number] MD ILDA Burks MD [address] [place] [address], [place] [address] 11/20/2017 07:59:38 11/20/2017 12:29:03 Specialized medical examination 61185409 Z01.419 Screening for malignant neoplasm of rectum 691651850 Z12.12 Screening mammography 24 893601 Z12.31 Menorrhagia 575636257 N9 2.0 Goiter 6887871 E04.9 [id number] MD ILDA Burks MD [address] [place] [address] [place] [address] 12/12/2017 13:19:58 12/12/2017 14:45:21 Hypothyroidism 24549812 E03.9 Goiter 0404001 E04.9 Menorrhagia 999320979 N9 2.0 [id number] MD ILDA Burks MD [address] [place] [address] [place] [address] 02/12/2018 09:07:50 02/12/2018 12:08:36 Breast lump 43802132 N63.0 [id number] MD ILDA Burks MD [address] [place] [address],[facility] [address] 01/09/2019 08:02:57 01/09/2019 10:25:11 Specialized medical examination 73768748 Z01.419 Screening for malignant neoplasm of rectum 010379870 Z12.12 Screening mammography 24 844609 Z12.31 D-dimer ab ove reference range 359984859 R79.1 [id number] MD ILDA Burks MD [address] [place] [address] [place] [place] [address] 07/25/2019 13:45:09 07/25/2019 15:26:24 Irregular periods 67052189 N92.4 [id number] MD ILDA Burks MD [address] [place] [address],[facility] [address] 03/18/2020 07:53:56 03/18/2020 09:47:44 Specialized medical examination 82567531 Z01.419 Screening for malignant neoplasm of rectum 175147285 Z12.12 Screening mammography 24 939508 Z12.31 [id number] MD ILDA Burks MD [address] [place] [address], [place] [address] 04/28/2021 08:04:35 04/28/2021 10:37:11 Specialized medical examination 88685032 Z01.419 Screening for malignant neoplasm of rectum 114975378 Z12.12 Screening mammography 24 916783 Z12.31 [id number] MD ILDA Burks MD [address] [place] [address], [place] [address] 05/03/2022 08:04:52 05/03/2022 10:32:14 Specialized medical examination 25410808 Z01.419 Screening for malignant neoplasm of rectum 544306984 Z12.12 Screening mammography 24 161651 Z12.31 [id number] MD ILDA Burks MD [address] [place] [address], [place] [address] 05/03/2023 08:17:40 05/03/2023 11:39:17 Specialized medical examination 98472346 Z01.419 Screening for malignant neoplasm of rectum 086950181 Z12.12 Screening mammography 24 439972 Z12.31 [id number] MD ILDA Burks MD [address] [place] [address], [place] [address] 05/17/2024 08:06:15 05/17/2024 11:50:49 Specialized medical examination 40263564 Z01.419 Screening for malignant neoplasm of rectum 516010761 Z12.12 Screening mammography 24 135338 Z12.31 Health Concerns Section Related Observation LastModified by Organization Detai ls LastModified Time None Recorded Concern Status LastModified by Organization Details LastModified Time None Recorded Advance Directives Directive None Recorded Payers Encounter Date Sequence Insurance Name Policy Number Policy Da Silva Covered Member ID Da Silva Member ID Guarantor Name 03/18/2020 1 [place] [id number] Gary Chase [id number] Rodrigo Chase 04/28/2021 1 [place] [facility] [id number] Gary Chase [id number] Rodrigo Chase 05/03/2022 1 [employer] - OPEN ACCESS PLUS [id number] Gary Chase [id number] Rodrigo Chase 05/03/2023 1 [employer] - OPEN ACCESS PLUS [id number] Gary Chase [id number] Rodrigo Chase 05/17/2024 1 [employer] - OPEN ACCESS PLUS [id number] Gary Chase [id number] Rodriog Chase Notes Date Note Type Note Provider [...] scanned to chart today. She is of [place] origin, states she does not have thalassemia, [...] is advised she could also see a network development coordinator if she wishes. Ilda Mora MD [address] [facility],[address], [place], [id number], [employer] [facility], 03/18/2020 08:30:29 04/28/2021 text/html She is here [...] it. s/p vasectomy. Ilda Mora MD [address] [facility],[address], [place], [id number], [employer] [facility], 04/28/2021 09:38:48 05/03/2022 text/html She is here [...] tolerable for now. Ilda Mora MD [address], [place], [id number], [employer] [facility], 05/03/2022 08:29:03 05/03/2023 text/html She is here for annual, doing well, last menses 11/14. She notes occasional mild urinary stress incontinence only when her bladder is full. she does not do Kegels. PArtner vasectomy. Note from 2021: She is here for annual, last menses was 11/13, menses every 4 to 6 months, partner vasectomy. Moderate vasomotor symptoms, tolerable Ilda Mora MD [address], [place], [id number], [place] [facility], 05/03/2023 08:50:12 05/17/2024 text/html She is here for annual, no menses since 11/14, vasomotor symptoms are mild and improving over time. _ Note from 2022: She is here for annual, doing well, last menses 11/14. She notes occasional mild urinary stress incontinence only when her bladder is full. she does not do Kegels.PArtner vasectomy. Ilda Mora MD [address] [facility],[address], [place], [address], [place] [facility], 05/17/2024 09:17:44 OBGyn Episode No OBEpisode recorded.
== END 2025-01-10 12:57 | disposition home or self-care (01) ==
LOC: HO.HMGCX 12:56
PROVIDERS: PCP Physician Assistant Medical; Visit Provider Physician Assistant Medical
DX: E03.8 Other specified hypothyroidism (principal); E04.1 Nontoxic single thyroid nodule
CPT/HCPCS: 76536

== ENCOUNTER → 2025-01-10 12:58 | Outpatient (BNV) | payer OTHER, SELFPAY | PROVIDERS: PCP Physician Assistant Medical; Visit Provider Radiology Diagnostic Radiology | DX: E04.2 Nontoxic multinodular goiter (principal) | CPT/HCPCS: 76536 ==